=== PATIENT | male | born 1995 | race African-American/Black ===

== ENCOUNTER 2019-03-04 15:03 | Emergency (ER) | payer OTHER ==
[~2019-03-04] VITALS: Ht 180.3 cm; Wt 80.7 kg
== END 2019-03-04 20:47 | disposition home or self-care (01) ==
LOC: ER 15:03
DX: L03.011 Cellulitis of right finger (principal)

== ENCOUNTER → 2024-08-11 | Emergency (ER) | payer OTHER ==
[~2024-08-11] VITALS: Ht 180.3 cm; Wt 81.6 kg
== END | disposition left against medical advice (07) ==
LOC: ER 21:49
DX: Z53.21 Procedure and treatment not carried out due to patient leaving prior to being seen by health care provider (principal)